=== PATIENT | male | born 1970 | race American Indian/Alaskan Native ===

== ENCOUNTER 2016-11-15 09:59 | Day surgery (SDC) | payer BC ==
[~2016-11-15 09:59] MED LIST: ANCEF/STERILE WATER 2 GM/20 ML 2 GM/20 ML SYRINGE IV NR; ANCEF/STERILE WATER 2 GM/20 ML IV NR
[2016-11-15] MEDS ORDERED: NACL 0.9% 1000 ML 1,000 ML ONE (10:27)
--- NOTE | 2016-11-15 10:31 | Anesthesia Consultation ---
Anesthesia Consult and Med Hx Date of service: 11/15/16 - Airway Anesthetic Teeth Evaluation: Good ROM Head & Neck: Adequate Mental/Hyoid Distance: Adequate Mallampati Class: Class II Intubation Access Assessment: Probably Good - Pulmonary Exam CTA: Yes - Cardiac Exam Cardiac Exam: RRR - Pre-Operative Health Status ASA Pre-Surgery Classification: ASA2 Proposed Anesthetic Plan: General - Pulmonary Hx Smoking: No Hx Sleep Apnea: No (DORIS PRE SCREEN HIGH RISK) - Cardiovascular System Hx Hypertension: No Hx Peripheral Vascular Disease: Yes (? LEGS) - Other Systems Hx Cancer: No Hx Obesity: Yes
--- NOTE | 2016-11-15 10:32 | Anesthesia Day of Surgery ---
Anesthesia Day of Surgery - Day of Surgery Patient Examined: Yes Patient H&P Reviewed: Yes Patient is NPO: Yes
[2016-11-15] MEDS ORDERED: NACL 0.9% 1000 ML 1,000 ML IV SCH (10:35)
[2016-11-15] MEDS ORDERED: PEPCID IV NR (10:35)
[2016-11-15] MEDS ORDERED: VERSED IV NR (10:35)
--- NOTE | 2016-11-15 12:27 | Post Operative Note ---
Date of procedure: 11/15/16 Pre-op diagnosis: renal stones Post-op diagnosis: same Findings: as above Procedure: right eswl Anesthesia: SAGAR Surgeon: SONIA CARBALLO Estimated blood loss: none Pathology: none Condition: stable Disposition: PACU
--- NOTE | 2016-11-15 12:28 | Discharge Summary ---
Short Stay Discharge Plan Activity: other (no strain ing ) Weight Bearing Status: Full Weight Bearing Diet: low fat, low cholesterol, low salt Special Instructions: other (inc fluids ) Follow up with: RITESH CHENG MD [Staff Physician] - 7 Days
[2016-11-15] MEDS ORDERED: XYLOCAINE MPF 2% ONE (12:33)
[2016-11-15] MEDS ORDERED: DIPRIVAN 10 MG/ML IV ONE (12:33)
[2016-11-15] MEDS ORDERED: ZOFRAN ONE (12:34)
[2016-11-15] MEDS ORDERED: DECADRON ONE (12:34)
[2016-11-15] MEDS ORDERED: DILAUDID ONE (12:34)
--- NOTE | 2016-11-15 13:29 | Operative Report ---
PREOPERATIVE DIAGNOSIS: Right renal stone. POSTOPERATIVE DIAGNOSIS: Right renal stone. PROCEDURE: Right ESWL. SURGEON: Sebastian Rincon MD ANESTHESIA: General. FINDINGS: This is a gentleman with intermittent right flank pain. He has a 7-8 mm stone in right kidney, now presents for lithotripsy. All risks and complications were discussed. DESCRIPTION OF PROCEDURE: The patient was brought to lithotripsy suite, placed on the table. Stone was well localized, both the AP and oblique image. The patient's weight was approximately 390 pounds and visualization was good, but there was less of a chance of this being successful. Shocks were begun at 1 kV and renal pause was carried out, and shocks maximum of 6 kV. Total number of shocks 2500. The patient tolerated the procedure well and brought to recovery in stable condition. JOB# [id number] FRANC/EVI
[2016-11-15] MEDS ORDERED: PERCOCET 5/325 PO PRN (14:03)
--- NOTE | 2016-11-15 14:08 | Post Anesthesia Evaluation ---
- Post Anesthesia Evaluation Patient Participated: Yes Airway Patent: Yes Stable Respiratory Function: Yes Nausea/Vomiting: No Temp > 96.8F: Yes Pain Manageable: Yes Adequeate Hydration: Yes Anesthesia Complications: No Block Receding Appropriately: Not Applicable Patient on Ventilator: No
[2016-11-15 14:42] VITALS: BP 127/83
--- NOTE | 2016-11-16 09:16 | XRay Report ---
ABDOMEN RADIOGRAPHS INDICATION: Right flank kidney stone. COMPARISON: None similar. FINDINGS: Frontal abdominal radiographs limited due to patient body habitus with technical coarsening. Right flank incompletely imaged as also the lung bases. An air-containing small bowel short segment measures up to approximately 3 cm caliber. Otherwise relatively gasless abdomen with minimal colonic air and some rectal stool noted. Approximately 7 mm right renal calculus may project just below the right 12th rib on one of the views. Few bony degenerative changes as along the spine and somewhat prominent/hypertrophied lateral acetabular corners. CONCLUSION: Approximately 7 mm right renal calculus not excluded with few other findings, as above. Please correlate. Thank you for the opportunity to participate in this patient's care.
== END 2016-11-15 14:54 | disposition home or self-care (01) ==
LOC: OR 09:59
PROVIDERS: ATTEND Urology
DX: N20.0 Calculus of kidney (principal); E66.9 Obesity, unspecified; Z68.43 Body mass index [BMI] 50.0-59.9, adult
CPT/HCPCS: 50590; 74000; J0690; J1100; J1170; J2250; J2405; J2704; J7030

== ENCOUNTER 2017-09-12 07:52 | Day surgery (SDC) | payer BC ==
--- NOTE | 2017-09-12 07:20 | Anesthesia Consultation ---
Anesthesia Consult and Med Hx - Pre-Operative Health Status ASA Pre-Surgery Classification: ASA3 - Pulmonary Hx Smoking: No Hx Sleep Apnea: No (DORIS PRE SCREEN HIGH RISK) - Cardiovascular System Hx Hypertension: No Hx Peripheral Vascular Disease: Yes (? LEGS) - Central Nervous System Hx Back Pain: Yes (FROM STONE) - Other Systems Hx Cancer: No Hx Obesity: Yes (BMI 57.9)
--- NOTE | 2017-09-12 07:21 | Anesthesia Day of Surgery ---
Anesthesia Day of Surgery - Day of Surgery Patient Examined: Yes Patient H&P Reviewed: Yes Patient is NPO: Yes
[2017-09-12] MEDS ORDERED: NACL 0.9% 1000 ML 1,000 ML IV SCH (08:00)
[2017-09-12] MEDS ORDERED: PEPCID IV NR (08:00)
[2017-09-12] MEDS ORDERED: VERSED IV NR (08:00)
[2017-09-12] MEDS ORDERED: NACL BACTERIOSTATIC INFILTRATI ONE (08:29)
[2017-09-12] MEDS ORDERED: DILAUDID IV PRN (09:20)
[2017-09-12] MEDS ORDERED: ZOFRAN IV PRN (09:20)
[2017-09-12] MEDS ORDERED: DIPRIVAN 10 MG/ML IV ONE ×3 (09:44→11:55)
[2017-09-12] MEDS ORDERED: SUBLIMAZE ONE (09:44)
[2017-09-12] MEDS ORDERED: XYLOCAINE MPF 2% ONE (09:50)
[2017-09-12] MEDS ORDERED: LACTATED RINGERS 1,000 ML IV SCH (10:00)
[2017-09-12] MEDS ORDERED: ANCEF/STERILE WATER 2 GM/20 ML IV NR (11:05)
[2017-09-12] MEDS ORDERED: BREVIBLOC IV ONE (12:03)
[2017-09-12] MEDS ORDERED: DECADRON ONE (12:03)
[2017-09-12] MEDS ORDERED: ZOFRAN ONE (12:18)
[2017-09-12] MEDS ORDERED: QUELICIN ONE (12:18)
--- NOTE | 2017-09-12 12:24 | Short Stay Summary ---
Short Stay Documentation Date of service: 09/12/17 - History H&P: obtained from office - Allergies and Medications Current Medications: Allergies No Known Allergies Allergy (Verified 11/01/16 14:41) Home Medications Medication Instructions Recorded Confirmed Last Taken Type HYDROcodone/APAP 5-325 [[place] 1 tab PO PRN PRN 11/01/16 09/12/17 09/11/17 10:00 History 5-325 mg TAB] Naproxen Sodium [Aleve] 220 mg PO PRN PRN 09/04/17 09/04/17 Unknown History Active Medications Cefazolin Sodium (Ancef/Sterile Water 2 Gm/20 Ml) 2 gm IV PREOP NR Stop: 09/12/17 23:59 Famotidine (Pepcid) 20 mg IV PREOP NR Stop: 09/12/17 23:59 Last Admin: 09/12/17 08:52 Dose: 20 mg Hydromorphone HCl (Dilaudid) 0.5 mg IV Q10MIN PRN PRN Reason: Pain , Severe (7-10) Stop: 09/12/17 18:00 Sodium Chloride (Nacl 0.9% 1000 Ml) 1,000 mls @ 100 mls/hr IV DIRECT REMY Last Admin: 09/12/17 08:52 Dose: 100 mls/hr Lactated Ringer's (Lactated Ringers) 1,000 mls @ 42 mls/hr IV DIRECT REMY Midazolam HCl (Versed) 2 mg IV PREOP NR Stop: 09/12/17 23:59 Last Admin: 09/12/17 09:34 Dose: 2 mg Ondansetron HCl (Zofran) 4 mg IV ONCE PRN PRN Reason: Nausea And Vomiting Stop: 09/12/17 18:00 - Physical exam General appearance: no acute distress - Brief post op/procedure progress note Date of procedure: 09/12/17 Pre-op diagnosis: right renal 8mm stone Post-op diagnosis: same Procedure: right renal eswl Anesthesia: GETA Findings: good vis , some frag Surgeon: JAIDA MORA Estimated blood loss: none Pathology: none Condition: stable - Hospital course Hospital course: [facility] - Disposition Condition at discharge: Good Disposition: DC- TO HOME OR SELFCARE Short Stay Discharge Plan Activity: advance as tolerated Follow up with: JAIDA MORA MD [Staff Physician] - 7 Days
[2017-09-12 13:55] VITALS: BP 126/62
--- NOTE | 2017-09-13 08:48 | Operative Report ---
PREOPERATIVE DIAGNOSES: Right renal 10 mm stone and morbid obesity. POSTOPERATIVE DIAGNOSES: Right renal 10 mm stone and morbid obesity. PROCEDURE: Right renal ESWL. IMPLANTS: None. ESTIMATED BLOOD LOSS: Minimal. COMPLICATIONS: None. FINDINGS: Good visualization, dense stone in the beginning of procedure, mild decrease in density at the end of procedure. CLINICAL INDICATIONS: The patient with the right renal stone nonobstructing, counseled [facility] by his primary urologist and me, antibiotics, SCDs. DESCRIPTION OF PROCEDURE: Transferred to OR suite in supine position, anesthesia begun. Biplanar fluoroscopy was used to target the stone easily on the right side. 2500 shocks at a maximum of 5.0 kilovolts. Intermittent repositioning is necessary on the stone during the whole procedure, there was some mild decrease in density. At the end of procedure, the patient was awakened and transferred to PACU in good and stable condition. PLAN: This was expected staged procedure due to the patient's morbid obesity, limitations, size of the stone, limitations on options would be expected to require multiple procedures to remove stone. JOB# [id number] ATS/NTS
== END 2017-09-12 14:50 | disposition home or self-care (01) ==
LOC: OR 07:52
PROVIDERS: ATTEND Urology
DX: N20.0 Calculus of kidney (principal); I73.9 Peripheral vascular disease, unspecified; I10 Essential (primary) hypertension; E66.01 Morbid (severe) obesity due to excess calories; Z68.43 Body mass index [BMI] 50.0-59.9, adult
CPT/HCPCS: 50590; J0330; J0690; J1100; J1170; J2250; J2405; J2704; J3010; J7030